=== PATIENT | female | born 1930 | race Caucasian/White ===

== ENCOUNTER 2017-02-14 03:27 | Emergency (ER) | payer MEDICARE, OTHER ==
[~2017-02-14] VITALS: Ht 162.6 cm; Wt 68.2 kg
[2017-02-14 03:45] VITALS: BP 156/69; PULSE 75; RESP 14; TEMP 97.8; O2SAT 95
[2017-02-14] MEDS ORDERED: SYNT25TA PO (04:08)
[2017-02-14] MEDS ORDERED: MORPHINE SULFATE 4 MG/ML INJ IV PUSH ONE ×2 (04:45→08:15)
[2017-02-14] MEDS ORDERED: DIPHTH/TETANUS/ACEL PERTUSSIS (BOOSTER) 0.5 ML VIAL/PFS IM ONE (04:45)
[2017-02-14 05:06] LABS: AUTOMATED NEUTROPHIL # 5.2 TH/MM3 (1.8-7.7); BASOPHIL # 0.1 TH/MM3 (0-0.2); BASOPHIL % 0.9 % (0.0-2.0); EOSINOPHIL # 0.3 TH/MM3 (0-0.4); HEMATOCRIT 38.4 % (35.0-46.0); HEMO FLAGS DIFF FINAL; MEAN CORPUSCULAR HEMOGLOBIN 31.2 PG (27.0-34.0); MEAN CORPUSCULAR HGB CONC 32.5 % (32.0-36.0); MONO % 9.1 % (0.0-8.0); PLATELET COUNT 215 TH/MM3 (150-450); WHITE BLOOD COUNT 7.2 TH/MM3 (4.0-11.0)
[2017-02-14 05:07] LABS: APTT (PATIENT) 22.8 SEC (24.3-30.1); INTERNATIONAL NORMALIZED RATIO 0.9 RATIO
[2017-02-14 05:10] LABS: BICARBONATE 28.5 MEQ/L (21.0-32.0)
--- NOTE | 2017-02-14 05:32 | RADRPT ---
EXAM DATE/TIME: 02/14/2017 05:04 [facility] COMPARISON: No previous studies available for comparison. INDICATIONS : Trauma, fall. RADIATION DOSE: 32.26 CTDIvol (mGy) MEDICAL HISTORY : Non-responsive. SURGICAL HISTORY : Non-responsive. ENCOUNTER: Initial ACUITY: 1 day PAIN SCALE: Non-responsive LOCATION: neck TECHNIQUE: Volumetric scanning of the cervical spine was performed. Multiplanar reconstructions i n the sagittal, coronal and oblique axial planes were performed. Using automated exposure control a nd adjustment of the mA and/or kV according to patient size, radiation dose was kept as low as reason ably achievable to obtain optimal diagnostic quality images. FINDINGS: The sagittal reconstructions demonstrate normal alignment and normal prevertebral soft tissues. The d ens is intact and there is a normal atlantoaxial relationship. There is fusion of the C5 and 6 and C6 vertebral bodies. Degenerative disc changes present with mild disc space narrowing and hypertrophic change. There is reversal of the normal cervical lordosis. The axial images demonstrate that the vertebral bodies and posterior elements are intact. The soft ti ssues are within normal limits. There is no evidence of acute fracture or malalignment. There are deg enerative changes involving the facet joints. CONCLUSION: Negative trauma CT. Marbin Murphy MD on February 14, 2017 at 5:29 Board Certified Radiologist. This report was verified electronically.
--- NOTE | 2017-02-14 05:34 | RADRPT ---
EXAM DATE/TIME: 02/14/2017 05:04 [facility] COMPARISON: No previous studies available for comparison. INDICATIONS : Trauma, fall. RADIATION DOSE: 56.35 CTDIvol (mGy) MEDICAL HISTORY : Non-responsive. SURGICAL HISTORY : Non-responsive. ENCOUNTER: Initial ACUITY: 1 day PAIN SCALE: Non-responsive LOCATION: cranial TECHNIQUE: Multiple contiguous axial images were obtained of the head. Using automated exposure control and adj ustment of the mA and/or kV according to patient size, radiation dose was kept as low as reasonably a chievable to obtain optimal diagnostic quality images. FINDINGS: CEREBRUM: The ventricles are normal for age with moderate atrophic change. There is mild motion artifact. No ev idence of midline shift, mass lesion, hemorrhage or acute infarction. No extra-axial fluid collectio ns are seen. POSTERIOR FOSSA: The cerebellum and brainstem are intact. The 4th ventricle is midline. The cerebellopontine angle i s unremarkable. EXTRACRANIAL: The visualized portion of the orbits is intact. SKULL: The calvaria is intact. No evidence of skull fracture. There is soft tissue swelling over the right parietal bone. CONCLUSION: Soft tissue swelling over the right parietal bone with no acute fracture or hemorrhag eaMyra Murphy MD on February 14, 2017 at 5:31 Board Certified Radiologist. This report was verified electronically.
--- NOTE | 2017-02-14 05:37 | RADRPT ---
EXAM DATE/TIME: 02/14/2017 04:52 [facility] COMPARISON: No previous studies available for comparison. INDICATIONS : Right knee pain from a fall. MEDICAL HISTORY : None. SURGICAL HISTORY : None. ENCOUNTER: Initial ACUITY: 1 day PAIN SCORE: 10/10 LOCATION: Right Knee FINDINGS: Four view examination of the right knee demonstrates no evidence of fracture or dislocation. There is diffuse moderate osteopenia. There are mild degenerative changes with sclerosis and chondrocalcinosi s. The articular surfaces are intact. The suprapatellar soft tissues have a normal configuration. CONCLUSION: 1. No acute fracture or malalignment. 2. Osteopenia and mild degenerative change. Marbin Murphy MD on February 14, 2017 at 5:34 Board Certified Radiologist. This report was verified electronically.
--- NOTE | 2017-02-14 05:39 | RADRPT ---
EXAM DATE/TIME: 02/14/2017 04:52 [facility] COMPARISON: No previous studies available for comparison. INDICATIONS : Fall trauma. MEDICAL HISTORY : None. SURGICAL HISTORY : Right hip arthroplasty ENCOUNTER: Initial ACUITY: 1 day PAIN SCORE: 09/16 LOCATION: Right hip FINDINGS: AP views of the right hip were obtained as well as an AP view the pelvis. The patient is status post right hip arthroplasty. There are postoperative changes in left hip with 3 lag type screws. There is diffuse osteopenia. There is a small lucent line through the right proximal femoral cortex which coul d represent a subtle nondisplaced fracture. The pubic rami and left hip are intact. Vascular calcific ations are present. The sacrum appears grossly intact. CONCLUSION: 1. Questionable subtle nondisplaced fracture involving the right proximal femur. 2. Postsurgical change. Marbin Murphy MD on February 14, 2017 at 5:35 Board Certified Radiologist. This report was verified electronically.
--- NOTE | 2017-02-14 05:40 | RADRPT ---
EXAM DATE/TIME: 02/14/2017 05:01 [facility] COMPARISON: No previous studies available for comparison. INDICATIONS : Right elbow laceration. MEDICAL HISTORY : None. SURGICAL HISTORY : None. ENCOUNTER: Initial ACUITY: 1 day PAIN SCORE: 09/16 LOCATION: Right elbow FINDINGS: No multiple views of the right elbow were obtained. A lateral view is obliqued. There is no acute fra cture or malalignment. There is no definite joint effusion. There is mild overlying artifact. There i s mild osteopenia. There are no radiopaque foreign bodies. CONCLUSION: Osteopenia with no acute fracture or malalignment. Marbin Murphy MD on February 14, 2017 at 5:37 Board Certified Radiologist. This report was verified electronically.
--- NOTE | 2017-02-14 05:46 | PD ---
Physical Exam Date Seen by Provider: Feb 14, 2017 Time Seen by Provider: 05:44 Narrative For full history of physical examination please see previous provider's note. I was asked to repair laceration to patient's right elbow. Data Data Last Documented VS Vital Signs Date Time Temp Pulse Resp B/P Pulse Ox O2 Delivery O2 Flow Rate FiO2 02/14/17 03:45 97.8 75 14 156/[address] Brain W/O Iv Contrast(Rout) (02/14/17 ) Ct Cerv Spine W/O Contrast (02/14/17 ) Elbow, Complete (4 Vws) (02/14/17 ) Hip, Uni(4+Vws) W Ap Pelvis (02/14/17 ) Complete Blood Count With Diff (02/14/17 04:31) Basic Metabolic Panel (Bmp) (02/14/17 04:31) Act Partial Throm Time (Ptt) (02/14/17 04:31) Prothrombin Time / Inr (Pt) (02/14/17 04:31) Iv Access Insert/Monitor (02/14/17 04:31) Morphine Inj (Morphine Inj) (02/14/17 04:45) Knee, Complete (4vws) (02/14/17 ) Kmxa-Jjl-Siewkz (Booster) Inj (Boostrix (02/14/17 04:45) Labs Laboratory Tests Test 02/14/17 04:15 White Blood Count 7.2 TH/MM3 Red Blood Count 4.00 MIL/MM3 Hemoglobin 12.5 GM/DL Hematocrit 38.4 % Mean Corpuscular Volume 96.0 FL Mean Corpuscular Hemoglobin 31.2 PG Mean Corpuscular Hemoglobin 32.5 % Concent Red Cell Distribution Width 13.0 % Platelet Count 215 TH/MM3 Mean Platelet Volume 8.3 FL Neutrophils (%) (Auto) 72.0 % Lymphocytes (%) (Auto) 14.0 % Monocytes (%) (Auto) 9.1 % Eosinophils (%) (Auto) 4.0 % Basophils (%) (Auto) 0.9 % Neutrophils # (Auto) 5.2 TH/MM3 Lymphocytes # (Auto) 1.0 TH/MM3 Monocytes # (Auto) 0.7 TH/MM3 Eosinophils # (Auto) 0.3 TH/MM3 Basophils # (Auto) 0.1 TH/MM3 CBC Comment DIFF FINAL Differential Comment Prothrombin Time 10.0 SEC Prothromb Time International 0.9 RATIO Ratio Activated Partial 22.8 SEC Thromboplast Time Sodium Level 141 MEQ/L Potassium Level 4.0 MEQ/L Chloride Level 105 MEQ/L Carbon Dioxide Level 28.5 MEQ/L Anion Gap 8 MEQ/L Blood Urea Nitrogen 21 MG/DL Creatinine 0.64 MG/DL Estimat Glomerular Filtration 88 ML/MIN Rate Random Glucose 93 MG/DL Calcium Level 8.9 MG/DL MDM Supervised Visit with LARRY: Yes Procedures Procedure Narrative LACERATION LOCATION: [Right elbow LENGTH: [3 cm NUMBER OF STITCHES/CHARLENE: 9 stitches REPAIR: The area of the laceration was prepped with Betadine and sterilely draped. The laceration was infiltrated with 1% lidocaine with epi. The wound was copiously irrigated and explored without evidence of foreign body, tendon injury or neurovascular injury. The wound was closed using 4-0 Prolene. This was a 1 layer repair. A sterile dressing was applied. The patient was advised to keep the dressing clean and dry. Patient tolerated the procedure well. Charlotte Dunham Feb 14, 2017 05:46
--- NOTE | 2017-02-14 06:58 | PD ---
HPI Chief Complaint: Fall Time Seen by Provider: 04:20 Travel History International Travel<30 days: No Contact w/Intl Traveler<30days: No Traveled to known affect area: No History of Present Illness HPI Patient is an 87-year-old female who comes in complaining of pain to her right elbow and right hip after a fall today. She got up to use the bathroom and slipped and fell. She did not lose consciousness. She does not take any blood thinners. She has had a hip replacement on the right. She denies any dizziness , blurred vision, nausea or vomiting. She does not know when her last tetanus shot was. Prior to the fall, she was in her normal state of health. She denies any chest pain or shortness of breath. PFSH Past Medical History Dementia: Yes Thyroid Disease: Yes Past Surgical History Abdominal Surgery: Yes (right hemicolectomy) Section: Yes (*3) Other Surgery: Yes (right hip replacement, left hip pin ) Social History Alcohol Use: Yes (rarely ) Tobacco Use: No Substance Use: No Allergies-Medications (Allergen,Severity, Reaction): Coded Allergies: No Known Allergies (Unverified , 02/14/17) Reported Meds & Prescriptions Reported Meds & Active Scripts Active [place] (Hydrocodone-Acetaminophen) 5-325 mg Tab 1 Tab PO Q6H PRN Reported Synthroid (Levothyroxine Sodium) 25 Mcg Tab 25 Mcg PO DAILY Review of Systems Except as stated in HPI: all other systems reviewed are Neg General / Constitutional: No: Fever, Chills Eyes: No: Blurred Vision HENT: Positive: Headaches Cardiovascular: No: Chest Pain or Discomfort Respiratory: No: Shortness of Breath Gastrointestinal: No: Nausea, Vomiting Musculoskeletal: Positive: Pain Skin: Positive Other (laceration) Neurologic: No: Weakness, Dizziness Physical Exam Narrative GENERAL: Awake and alert, in no acute distress. SKIN: Focused skin assessment warm/dry. 3 cm laceration to the right elbow. HEAD: Atraumatic. Normocephalic. Hematoma to the occiput. EYES: Pupils equal and round. No scleral icterus. Extraocular movements intact. ENT: Mucous membranes pink and moist. NECK: Trachea midline. No JVD. CARDIOVASCULAR: Regular rate and rhythm. No murmur appreciated. RESPIRATORY: No accessory muscle use. Clear to auscultation. Breath sounds equal bilaterally. GASTROINTESTINAL: Abdomen soft, non-tender, nondistended. MUSCULOSKELETAL: No obvious deformities. No clubbing. No cyanosis. No edema. Pain to palpation of the right elbow. Full range of motion of the right elbow. No other tenderness on palpation of the upper extremities. Tender to palpation of the right hip. Pain with movement of the right leg. Pedal pulses intact. NEUROLOGICAL: Awake and alert. No obvious cranial nerve deficits. Motor grossly within normal limits. Normal speech. PSYCHIATRIC: Appropriate mood and affect; insight and judgment normal. Data Data Last Documented VS Vital Signs Date Time Temp Pulse Resp B/P Pulse Ox O2 Delivery O2 Flow Rate FiO2 02/14/17 08:19 78 18 131/77 99 02/14/17 03:[address] Brain W/O Iv Contrast(Rout) (02/14/17 ) Ct Cerv Spine W/O Contrast (02/14/17 ) Elbow, Complete (4 Vws) (02/14/17 ) Hip, Uni(4+Vws) W Ap Pelvis (02/14/17 ) Complete Blood Count With Diff (02/14/17 04:31) Basic Metabolic Panel (Bmp) (02/14/17 04:31) Act Partial Throm Time (Ptt) (02/14/17 04:31) Prothrombin Time / Inr (Pt) (02/14/17 04:31) Iv Access Insert/Monitor (02/14/17 04:31) Morphine Inj (Morphine Inj) (02/14/17 04:45) Knee, Complete (4vws) (02/14/17 ) Iozf-Pzz-Xsjbvb (Booster) Inj (Boostrix (02/14/17 04:45) Electrocardiogram (02/14/17 03:58) Consult Pt Eval & Tx Oob (02/14/17 07:26) Morphine Inj (Morphine Inj) (02/14/17 08:15) Labs Laboratory Tests Test 02/14/17 04:15 White Blood Count 7.2 TH/MM3 Red Blood Count 4.00 MIL/MM3 Hemoglobin 12.5 GM/DL Hematocrit 38.4 % Mean Corpuscular Volume 96.0 FL Mean Corpuscular Hemoglobin 31.2 PG Mean Corpuscular Hemoglobin 32.5 % Concent Red Cell Distribution Width 13.0 % Platelet Count 215 TH/MM3 Mean Platelet Volume 8.3 FL Neutrophils (%) (Auto) 72.0 % Lymphocytes (%) (Auto) 14.0 % Monocytes (%) (Auto) 9.1 % Eosinophils (%) (Auto) 4.0 % Basophils (%) (Auto) 0.9 % Neutrophils # (Auto) 5.2 TH/MM3 Lymphocytes # (Auto) 1.0 TH/MM3 Monocytes # (Auto) 0.7 TH/MM3 Eosinophils # (Auto) 0.3 TH/MM3 Basophils # (Auto) 0.1 TH/MM3 CBC Comment DIFF FINAL Differential Comment Prothrombin Time 10.0 SEC Prothromb Time International 0.9 RATIO Ratio Activated Partial 22.8 SEC Thromboplast Time Sodium Level 141 MEQ/L Potassium Level 4.0 MEQ/L Chloride Level 105 MEQ/L Carbon Dioxide Level 28.5 MEQ/L Anion Gap 8 MEQ/L Blood Urea Nitrogen 21 MG/DL Creatinine 0.64 MG/DL Estimat Glomerular Filtration 88 ML/MIN Rate Random Glucose 93 MG/DL Calcium Level 8.9 MG/DL MDM Medical Decision Making Medical Screen Exam Complete: Yes Emergency Medical Condition: Yes Differential Diagnosis ICH versus cervical spine injury versus hip fracture versus elbow fracture Narrative Course Patient is an 87-year-old female who comes in after a fall. Exam shows a hematoma to the back of the head as well as a laceration to the right elbow and pain to the right elbow and right hip. IV established, labs sent. Labs show no acute abnormalities. CT head and C-spine performed show no acute abnormalities. X-ray of the elbow shows no acute fracture. X-ray of the right hip shows a subtle fracture. I spoke with Dr. Bonilla regarding this patient. He'll come see the patient. Elbow laceration repaired by RAUDEL Barrientos. Diagnosis Primary Impression: Hip fracture Qualified Code: S72.001A - Hip fracture, right, closed, initial encounter Additional Impressions: Laceration of elbow Qualified Code: S51.011A - Laceration of elbow, right, initial encounter Fall Qualified Code: W19.XXXA - Fall, initial encounter Patient Instructions: General Instructions, Hip Fracture (ED), Laceration (ED) Additional Instructions: You will need to have your sutures removed in 10-14 days. Take pain medicine as needed. Follow-up with the orthopedic surgeon. Follow-up with her doctor. Return to the ED as needed for worsening symptoms. Scripts Hydrocodone-Acetaminophen ([place])5-325 mg Tab1 Tab PO Q6H PRN (PAIN) #20 TAB Ref 0 Prov:Bettye Hackett MD 02/14/17 Disposition: 01 DISCHARGE HOME Condition: Stable Bettye Hackett MD Feb 14, 2017 06:57
[2017-02-14] MEDS ORDERED: NORC5TAB PO (07:12)
[2017-02-14 08:19] VITALS: BP 131/77
--- NOTE | 2017-02-14 08:22 | MB ---
cc: CALIXTO DURHAM DATE OF CONSULTATION: 02/14/2017 REASON FOR CONSULTATION: Right hip greater trochanter fracture. HISTORY Mrs Middleton is a 87-year-old female who lives with her . They live part-time in [place] and part of that time and [facility]. She has a daughter here. She got up to use the bathroom at approximately 2 in the morning, she had a fall. She had no loss of consciousness. She has a history of right total hip arthroplasty done approximately 10 years ago. She complains of right hip pain. Pain is worse with movement. She has minimal pain at rest. She is unable to stand or ambulate after a fall. X-RAYS The emergency room revealed a minimally displaced right hip greater trochanter fracture. She is currently awake and the emergency department. PAST MEDICAL HISTORY Illnesses; early dementia. hypothyroidism. SURGERIES 1. Hemicolectomy. 2. section. 3. Right hip replacement 4. Left hip pinning. ALLERGIES None. MEDICATIONS Synthroid. SOCIAL HISTORY The patient denies tobacco or drug use. She rarely drinks alcohol. FAMILY HISTORY Noncontributory. REVIEW OF SYSTEMS The patient denies headache, visual changes, neck pain, chest pain, shortness of breath, abdominal pain, nausea or recent weight loss. She complains of a right hip pain. PHYSICAL EXAMINATION IN GENERAL: The patient is a well-developed, well-nourished 87-year-old female who is awake and alert. She answers most questions appropriately. VITAL SIGNS: Temperature 97.8, pulse 75, respirations 14, blood pressure 156/65, O2 sat 95% on room air. HEAD/NECK: The patient is normocephalic. Pupils are equal. Neck: Soft, nontender. Trachea is midline. ABDOMEN: Soft, nontender, nondistended. EXTREMITIES: Examination of right arm reveals no significant pain with shoulder, elbow or wrist motion. She has a small laceration on her elbow which has been closed. She has good cap refill fingers. Sensation is intact in all fingers. Examination of left arm reveals no pain with shoulder or wrist motion. She has intact sensation in all fingers. She has good cap refill fingers. Skin is intact. Examination of left leg reveals no pain with hip, knee or ankle motion. Skin is intact. Dorsalis pedis pulses palpable. Examination of right leg reveals tenderness palpation directly over the greater trochanter. She has minimal pain with knee or ankle motion. She does have a bruise over anterior ankle. Skin is intact. Dorsalis pedis pulses palpable. Sensation is intact to both feet. X-RAYS X-rays of pelvis and right hip reviewed x-rays reveal a minimally displaced right hip greater trochanter fracture. Total hip arthroplasty is in good position. IMPRESSION 1. Minimally displaced right hip greater trochanter fracture. 2. Hypothyroidism 3. Early dementia. PLAN The treatment options were discussed with the patient and family at this point I would recommend nonoperative treatment. At this point I would recommend nonsurgical treatment. She should limit weightbearing to 50% weightbearing. She should not do any active abduction. This likely take approximately 6 weeks to heal. She understands that if fracture displaces surgical intervention could become necessary. All questions were answered. I would recommend followup x-rays in 2 weeks. The surgical procedure was assisted by my physician volleyball assistant coach. My P.A. presence was necessary throughout this case for the manipulation and positioning of the surgical extremity. My P.A. was assisting me throughout the duration of this procedure. The skill set of a physician volleyball assistant coach was medically necessary to complete this procedure. During the surgical case the client technical support associate was working at the back table and the physician volleyball assistant coach was directly assisting me. MD LILI Del Castillo/isiah /7:49 AM /8:10 AM SUN
--- NOTE | 2017-02-15 09:53 | EKG ---
Date Performed: 02/14/2017 Time Performed: 03:58:21 PTAGE: 87 years EKG: Sinus rhythm WITH SINUS ARRHYTHMIA LEFT ANTERIOR FASCICULAR BLOCK SEPTAL MYOCARDIAL INFARCTION ABNORMAL ECG NO PREVIOUS TRACING DOCTOR: Marco Veliz Interpretating Date/Time 02/15/2017 09:43:35
== END 2017-02-14 08:48 | disposition home or self-care (01) ==
LOC: NEPE 03:27
DX: S72.001A Fracture of unspecified part of neck of right femur, initial encounter for closed fracture (principal); S51.011A Laceration without foreign body of right elbow, initial encounter; R94.31 Abnormal electrocardiogram [ECG] [EKG]; F03.90 Unspecified dementia, unspecified severity, without behavioral disturbance, psychotic disturbance, mood disturbance, and anxiety; W01.0XXA Fall on same level from slipping, tripping and stumbling without subsequent striking against object, initial encounter; Y92.009 Unspecified place in unspecified non-institutional (private) residence as the place of occurrence of the external cause; Z23 Encounter for immunization
CPT/HCPCS: 12002; 70450; 72125; 73080; 73503; 73564; 80048; 85025; 85610; 85730; 90471; 90715; 93005; 96374; 96376; 99285; J2270